=== PATIENT | female | born 1950 | race Caucasian/White ===

== ENCOUNTER → 2021-05-16 | Outpatient (CLI) | payer BC | LOC: EXRD 14:30 | DX: J98.4 Other disorders of lung (principal) | CPT/HCPCS: 94060; 94729 ==

== ENCOUNTER → 2021-05-23 | Day surgery (SDC) | payer BC ==
[~2021-05-23] MED LIST: CITALOPRAM HBR20 MG PO; COZAAR25 MG PO; FISH OIL 1,0001 EAC4 PO; PRAVASTATIN SOD80 MG PO; SINGULAIR10 MG PO; VITAMIN D21250 MCG PO
== END | disposition home or self-care (01) ==
LOC: OR 05-22 07:30
DX: J98.4 Other disorders of lung (principal); J44.9 Chronic obstructive pulmonary disease, unspecified; I10 Essential (primary) hypertension; E78.5 Hyperlipidemia, unspecified; F17.210 Nicotine dependence, cigarettes, uncomplicated; R04.2 Hemoptysis; Z79.899 Other long term (current) drug therapy
CPT/HCPCS: 76000; J2704; J7120

== ENCOUNTER → 2021-06-25 | Outpatient (CLI) | payer BC | LOC: MRI 14:00 | DX: C34.31 Malignant neoplasm of lower lobe, right bronchus or lung (principal) | CPT/HCPCS: 36415; 70553; 82565; A9577 ==

== ENCOUNTER → 2021-07-09 | Outpatient (CLI) | payer BC | LOC: OPSV 07:00 | DX: C34.31 Malignant neoplasm of lower lobe, right bronchus or lung (principal) | CPT/HCPCS: C1751 ==

== ENCOUNTER → 2021-07-17 | Outpatient (CLI) | payer BC | LOC: RAD 16:52 | DX: J90 Pleural effusion, not elsewhere classified (principal) | CPT/HCPCS: 71046 ==

== ENCOUNTER → 2021-09-26 | Outpatient (CLI) | payer BC | LOC: CT 08:30 | DX: C34.31 Malignant neoplasm of lower lobe, right bronchus or lung (principal) | CPT/HCPCS: 71260; Q9967 ==

== ENCOUNTER → 2022-02-03 | Outpatient (CLI) | payer BC ==
[~2022-02-03] MED LIST changes: +ALPRAZOLAM0.5 MG PO; -FISH OIL 1,0001 EAC4 PO; +OMEGA 3 1,0001 EACH PO; +PEPCID20 MG PO
== END ==
LOC: LBRF 09:04 → LAB 09:04 → EDSTATUS 09:09
DX: Z20.822 Contact with and (suspected) exposure to COVID-19 (principal)
CPT/HCPCS: U0003

== ENCOUNTER → 2022-02-06 | Day surgery (SDC) | payer BC | END | disposition home or self-care (01) | LOC: OR 05:07 | DX: C34.90 Malignant neoplasm of unspecified part of unspecified bronchus or lung (principal); I10 Essential (primary) hypertension; E78.5 Hyperlipidemia, unspecified; J44.9 Chronic obstructive pulmonary disease, unspecified; F17.210 Nicotine dependence, cigarettes, uncomplicated; Z79.899 Other long term (current) drug therapy | CPT/HCPCS: 71045; 77001; C1769; C1788; J0690; J1642; J2001; J2250; J2405; J2704; J3010; J7040; J7120 ==

== ENCOUNTER → 2022-02-18 | Outpatient (CLI) | payer BC ==
[2022-02-18 13:14] LABS: RED BLOOD COUNT 4.5 M/UL (4.00-5.10); WHITE BLOOD COUNT 5.7 K/UL (4.5-11.0)
== END ==
LOC: CT 10:50
PROVIDERS: Internal Medicine Hematology & Oncology
DX: C34.31 Malignant neoplasm of lower lobe, right bronchus or lung (principal); R91.1 Solitary pulmonary nodule
CPT/HCPCS: 36415; 71260; 85025

== ENCOUNTER → 2022-04-24 | Outpatient (CLI) | payer BC ==
[2022-04-24 09:48] LABS: HEMOGLOBIN 14.1 gm/dl (12.3-15.3); RED BLOOD COUNT 4.44 M/UL (4.00-5.10); WHITE BLOOD COUNT 4.9 K/UL (4.5-11.0)
[2022-04-24 10:15] LABS: BUN/CREATININE RATIO 23 (0-10)
== END ==
LOC: CT 09:09
PROVIDERS: Internal Medicine Hematology & Oncology
DX: C34.31 Malignant neoplasm of lower lobe, right bronchus or lung (principal); R91.8 Other nonspecific abnormal finding of lung field
CPT/HCPCS: 36415; 71260; 80053; 84443; 85025; Q9967